=== PATIENT | female | born 1970 | race Caucasian/White ===

== ENCOUNTER → 2017-05-01 | Outpatient (CLI) | payer OTHER ==
--- NOTE | 2017-05-01 12:06 | REP ---
Bilateral screening digital mammogram: There are no palpable abnormalities or other breast complaints. The patient states that she/he has not had a clinical breast exam in over a year. Comparison is 04/03/2012. There is very dense breast parenchyma, unchanged. There has been no interval development of masses, areas of structural distortion or clusters of microcalcifications typical of malignancy. Impression: There is no evidence of malignancy. BI-RADS/ACR category 1 mammogram. Negative. The patient should have a repeat mammogram in 1 year. This mammogram was interpreted with the aid of an FDA-approved computer-aided detection system. A. Negative x-ray reports should not delay biopsy if a dominant or clinically suspicious mass is present. B. Not all breast cancers are identified by x-ray. C. Adenosis and dense breasts may obscure an underlying neoplasm. The patient letter being requested is M1 dense breasts. Signed by Rene Puente MD 05/01/2017 02:58 P
== END ==
LOC: M RAD 10:15
PROVIDERS: ATTEND Physician Assistant Medical
DX: Z12.31 Encounter for screening mammogram for malignant neoplasm of breast (principal)

== ENCOUNTER → 2018-11-21 | Outpatient (REF) | payer OTHER | LOC: M SFHCLERA 15:30 | PROVIDERS: ATTEND Nurse Practitioner Family | DX: R39.9 Unspecified symptoms and signs involving the genitourinary system (principal) | CPT/HCPCS: 81002; 81025; 87086; G0463 ==

== ENCOUNTER → 2019-08-12 | Outpatient (REF) | payer OTHER | LOC: M SFHCLERA 15:08 | PROVIDERS: ATTEND Nurse Practitioner Family | DX: R53.83 Other fatigue (principal) | CPT/HCPCS: 82306; G0463 ==

== ENCOUNTER → 2020-10-12 | Outpatient (CLI) | payer OTHER ==
--- NOTE | 2020-10-12 10:17 | REP ---
INDICATION: MARA SCR MAMMO/Z12.31. Family history breast cancer at age 55 in paternal cousin, as well as in paternal aunt age 82. COMPARISON: 05/01/2017 as well as other prior exams. TECHNIQUE: MLO and CC views bilateral breasts with tomosynthesis. FINDINGS: Moderate fibroglandular tissue is present bilaterally. I see no evidence of focal mass or nodule. There is no architectural distortion. There are tiny calcifications seen posterolaterally on the CC view of the right breast. These are not identified on the MLO view. The Volpara volumetric breast density pattern is C. IMPRESSION: BIRADS/ACR category 0, incomplete. Tiny calcifications are visualized posterolaterally in the right breast, only in the CC projection. Recommend magnification view of the right breast in the CC projection as well as a right mL view. Other views may also be necessary. This patient's Tyrer-Cuzick lifetime breast cancer risk assessment score is 16.2%. This mammogram was interpreted with the aid of an FDA-approved computer-aided detection system. The patient states she had a clinical breast exam in October 2020. The patient letter being requested is M0. RECOMMENDATION: Recommend additional mammographic imaging as above. <Electronically signed by Rene Mason > 10/12/20 [id number]
== END ==
LOC: M WHC 09:19
PROVIDERS: ATTEND Nurse Practitioner Family
DX: Z12.31 Encounter for screening mammogram for malignant neoplasm of breast (principal); Z80.3 Family history of malignant neoplasm of breast; R92.2 Inconclusive mammogram

== ENCOUNTER → 2020-10-12 | Outpatient (REF) | payer OTHER ==
[2020-10-12 14:50] LABS: BASO # 0.1 10^3/uL (0.0-0.2); BASO % 0.6 % (0.0-1.0); EOS # 0.2 10^3/uL (0.0-0.5); EOS % 2.3 % (0.0-3.0); HEMOGLOBIN 13.4 g/dl (12.0-15.5); LYMPH # 3.5 10^3/uL (1.5-5.0); MEAN CORPUSCULAR HEMOGLOBIN 28.3 pg (27.0-33.0); MEAN CORPUSCULAR HGB CONC 31.2 g/dl (32.0-36.5); MEAN CORPUSCULAR VOLUME 90.9 fl (80.0-96.0); MONO # 0.9 10^3/uL (0.0-0.8); MONO % 9.9 % (2.0-8.0); NEUTROPHILS # 4.7 10^3/uL (1.5-8.5); PLATELET COUNT, AUTOMATED 301 10^3/uL (150-450); RED BLOOD COUNT 4.73 10^6/uL (4.00-5.40); WHITE BLOOD COUNT 9.3 10^3/uL (4.0-10.0)
[2020-10-12 15:25] LABS: ALBUMIN 3.6 GM/DL (3.2-5.2); ALT/SGPT 23 U/L (12-78); BILIRUBIN,TOTAL 0.2 MG/DL (0.2-1.0); BLOOD UREA NITROGEN 12 MG/DL (7-18); CALCIUM LEVEL 8.9 MG/DL (8.5-10.1); CARBON DIOXIDE LEVEL 31 MEQ/L (21-32); CHLORIDE LEVEL 106 MEQ/L (98-107); CHOLESTEROL LEVEL 173 MG/DL (<200); CHOLESTEROL RISK RATIO 3.145 (<5); CREATININE FOR GFR 0.87 MG/DL (0.55-1.30); GLOMERULAR FILTRATION RATE > 60.0 (>58); GLUCOSE, FASTING 103 MG/DL (70-100); HDL CHOLESTEROL 55 MG/DL (>40); LDL CHOLESTEROL 91 MG/DL (<100); NON-HDL-C 118 MG/DL; POTASSIUM SERUM 3.9 MEQ/L (3.5-5.1); SODIUM LEVEL 140 MEQ/L (136-145); TOTAL PROTEIN 7.1 GM/DL (6.4-8.2); TRIGLYCERIDES LEVEL 134 MG/DL (<150)
[2020-10-12 15:31] LABS: TOTAL 25(OH) VITAMIN D 20.6 NG/ML (30.0-100.0)
== END ==
LOC: M SFHCLERA 09:00
PROVIDERS: ATTEND Nurse Practitioner Family
DX: Z13.220 Encounter for screening for lipoid disorders (principal); Z13.1 Encounter for screening for diabetes mellitus; E55.9 Vitamin D deficiency, unspecified

== ENCOUNTER → 2020-10-22 | Outpatient (CLI) | payer OTHER ==
--- NOTE | 2020-10-22 10:12 | REP ---
INDICATION: ADDL VIEWS/RIGHT BREAST CALCS. Screening mammography from October 12, 2020 BI-RADS category 0 due to some faint linearly aligned calcifications posterolaterally on the right seen only on CC view. Comparison is also made with prior mammography from May 01, 2017. COMPARISON: October 12, 2020 and May 01, 2017. TECHNIQUE: Magnified focal spot-compression CC MLO and true mL views of the right breast are obtained. 3D tomography in the mediolateral projection is acquired. A repeat mediolateral oblique view is obtained. This mammogram was interpreted with the aid of an FDA-approved computer-aided detection system. FINDINGS: Magnified focal spot-compression craniocaudal view confirms the presence of a the linearly aligned grouping of 4-5 faint microcalcifications laterally in the right breast. These may be vascular. The could not be confirmed with confidence on orthogonal views or on 3D tomography. Breast parenchyma is again seen to be heterogeneously dense in a pattern which may inhibit the sensitivity mammography. No other suspicious mammographic finding.. : IMPRESSION: BIRADS/ACR category 3 probably benign right breast mammographic findings.. Microcalcifications in the right lateral breast may be arterial vascular. This patient's Tyrer-Cuzick lifetime breast cancer risk assessment score is 16.2%. RECOMMENDATION: Repeat right breast mammography recommended in 6 months.. The patient letter being requested is M 3 dense. <Electronically signed by Andrew Young > 10/22/20 [id number]
== END ==
LOC: M WHC 08:41
PROVIDERS: ATTEND Nurse Practitioner Family
DX: R92.0 Mammographic microcalcification found on diagnostic imaging of breast (principal)
CPT/HCPCS: 77065; G0279

== ENCOUNTER → 2021-04-13 | Outpatient (CLI) | payer OTHER ==
--- NOTE | 2021-04-13 13:56 | REP ---
INDICATION: ABNORMAL MAMMO RIGHT BREAST CAT 3. COMPARISON: Comparison mammography October 12, 2020 and May 01, 2017. October 22, 2020 mammography is also reviewed. TECHNIQUE: Magnified focal spot-compression CC, true mL, and MLO views are obtained. 3D tomography is deployed in the mediolateral projection. This mammogram was interpreted with the aid of an FDA-approved computer-aided detection system. FINDINGS: Breast parenchyma is heterogeneously dense in a pattern which may inhibit the sensitivity mammography. Once again, the craniocaudal view demonstrates a linearly aligned grouping of subtle calcifications in the lateral aspect of the right breast. These are not seen on the orthogonal projection imaging. This was the case on the October 22, 2020 and October 12, 2020 imaging as well. The do not appear to have progressed on the CC view and may well be vascular. No new mammographic lesion is seen. The Volpara volumetric breast density pattern is C. IMPRESSION: BIRADS/ACR category 3 probably benign right breast mammographic findings. Stable linearly aligned group of subtle calcifications laterally in the right breast seen on CC view only. Is. This patient's Tyrer-Cuzick lifetime breast cancer risk assessment score is 16.2%. RECOMMENDATION: Repeat diagnostic right breast mammography and screening left breast mammography in 6 months. The patient letter being requested is M 3 dense. <Electronically signed by Andrwe Young > 04/13/21 [id number]
== END ==
LOC: M WHC 10:29
PROVIDERS: ATTEND Nurse Practitioner Family
DX: R92.8 Other abnormal and inconclusive findings on diagnostic imaging of breast (principal)
CPT/HCPCS: 77065; G0279

== ENCOUNTER → 2021-11-09 | Outpatient (CLI) | payer OTHER | LOC: M WHC 07:20 | PROVIDERS: ATTEND Nurse Practitioner Family | DX: Z12.31 Encounter for screening mammogram for malignant neoplasm of breast (principal) ==